=== PATIENT | female | born 1965 | race Hispanic/Latino ===

== ENCOUNTER → 2019-01-12 | Outpatient (CLI) | payer OTHER | END | disposition home or self-care (01) | LOC: OIH 13:26 | PROVIDERS: ATTEND Internal Medicine Cardiovascular Disease | DX: Z13.6 Encounter for screening for cardiovascular disorders (principal) | CPT/HCPCS: 75571 ==

== ENCOUNTER → 2021-03-28 | Outpatient (CLI) | payer BC | END | disposition home or self-care (01) | LOC: CANPRECLI → RAH 10:25 | PROVIDERS: ATTEND Internal Medicine Cardiovascular Disease | DX: R91.8 Other nonspecific abnormal finding of lung field (principal); I25.10 Atherosclerotic heart disease of native coronary artery without angina pectoris; Z86.16 Personal history of COVID-19 | CPT/HCPCS: 71250 ==

== ENCOUNTER → 2021-08-14 | Outpatient (CLI) | payer BC ==
[~2021-08-14] MED LIST: REGADENOSON 0.4 MG/5 ML PF SYG IVP SCH
== END | disposition home or self-care (01) ==
LOC: SHCH 07:43
PROVIDERS: ATTEND Internal Medicine Cardiovascular Disease
DX: I25.9 Chronic ischemic heart disease, unspecified (principal)
CPT/HCPCS: 78452; 93017; 96374; A9500 ×2; J2785